=== PATIENT | male | born 1985 | race Caucasian/White ===

== ENCOUNTER 2018-05-02 20:24 | Emergency (ER) | payer BC ==
[2018-05-02] MEDS ORDERED: Sodium Chloride 0.9% 10 ML Syringe FLUSH PRN (20:35)
[2018-05-02] MEDS ORDERED: Aspirin 81 MG Tab.Chew PO ONE (20:44)
--- NOTE | 2018-05-02 20:49 | EDM.PDOC ---
ED HPI GENERAL MEDICAL PROBLEM - General Chief Complaint: Chest Pain Stated Complaint: TIGHTNESS ON CHEST,TINGILING LT ARM Time Seen by Provider: 05/02/18 20:35 Source of Information: Reports: Patient History Limitations: Reports: No Limitations - History of Present Illness INITIAL COMMENTS - FREE TEXT/NARRATIVE: Complains of substernal chest tightness, left arm tingling, intermittent palpitations, and "cold sweats" x 2 hours onset while seated at desk. Denies h/ o CAD. Has borderline high cholesterol. His only medication is [place] 3. There is a family history of early LA (Uncle had an LA in his 30's). Patient denies feeling anxious. Onset: Sudden Duration: Hour(s): (2) Location: Reports: Chest Quality: Reports: Other (tightness) Severity: Moderate Improves with: Reports: None Worsens with: Reports: None Context: Reports: Other (at rest) - Related Data Allergies Allergy/AdvReac Type Severity Reaction Status Date / Time No Known Allergies Allergy Verified 05/02/18 21:28 Home Meds: Home Meds [place]-3 Acid Ethyl Esters 1 gm PO DAILY 05/02/18 [History] Past Medical History Cardiovascular History: Reports: High Cholesterol. Denies: CAD Social & Family History - Tobacco Use Smoking Status *Q: Never Smoker - Alcohol Use Alcohol Use History: No - Recreational Drug Use Recreational Drug Use: No ED ROS GENERAL - Review of Systems Review Of Systems: ROS reveals no pertinent complaints other than HPI. ED EXAM, GENERAL - Physical Exam Exam: See Below Exam Limited By: No Limitations General Appearance: Alert, No Apparent Distress Ears: Normal External Exam Nose: Normal Inspection Throat/Mouth: No Airway Compromise Head: Atraumatic, Normocephalic Neck: Normal Inspection, Full Range of Motion Respiratory/Chest: No Respiratory Distress, Lungs Clear, Normal Breath Sounds, Chest Non-Tender Cardiovascular: Regular Rate, Rhythm, No Murmur GI/Abdominal: Normal Bowel Sounds, Soft, Non-Tender, No Distention Back Exam: Full Range of Motion Extremities: Normal Range of Motion Neurological: Alert, Oriented, Normal Cognition, No Motor/Sensory Deficits Psychiatric: Normal Affect, Normal Mood Skin Exam: Warm, Dry, Intact EKG INTERPRETATION EKG Date: 05/02/18 Time: 22:04 Rhythm: NSR Rate (Beats/Min): 81 [place]: Normal P-Wave: Present QRS: Normal ST-T: Other (ST elevation, early repolarization pattern) QT: Normal Comparison: NA - No Prior EKG Course - Vital Signs Last Recorded V/S: Last Vital Signs Temp 36.8 C 05/02/18 20:25 Pulse 91 05/02/18 20:25 Resp 18 05/02/18 20:25 BP 120/73 05/02/18 20:25 Pulse Ox 100 05/02/18 20:25 - Orders/Labs/Meds Orders: Active Orders 24 hr Category Date Time Status EKG Documentation Completion [RC] ASDIRECTED Care 05/02/18 20:35 Active Chest 1V Frontal [CR] Stat Exams 05/02/18 20:34 Taken Nitroglycerin [Nitrostat] Med 05/02/18 20:45 Active 0.4 mg SL Q5M PRN Sodium Chloride 0.9% [Normal Saline] 500 ml Med 05/02/18 21:37 Active IV .BOLUS Sodium Chloride 0.9% [Saline Flush] Med 05/02/18 20:35 Active 10 ml FLUSH ASDIRECTED PRN Saline Lock Insert [OM.PC] Routine Oth 05/02/18 20:35 Ordered EKG 12 Lead [EK] Stat Ther 05/02/18 20:34 Ordered Medication Orders Sodium Chloride (Normal Saline) 500 mls @ 999 mls/hr IV .BOLUS ONE Stop: 05/02/18 22:07 Nitroglycerin (Nitrostat) 0.4 mg SL Q5M PRN PRN Reason: Chest Pain Sodium Chloride (Saline Flush) 10 ml FLUSH ASDIRECTED PRN PRN Reason: Keep Vein Open Labs: Laboratory Tests 05/02/18 05/02/18 05/02/18 Range/Units 20:40 20:40 20:40 WBC 7.9 (4.5-12.0) X10-3/uL RBC 5.14 (4.30-5.75) x10(6)uL Hgb 15.2 (13.5-17.8) g/dL Hct 45.4 (30.0-51.3) % MCV 88.2 (80-96) fL MCH 29.5 (27.7-33.6) pg MCHC 33.5 (32.2-35.4) g/dL RDW 12.5 (11.5-15.5) % Plt Count 321 (125-369) X10(3)uL MPV 8.3 (7.4-10.4) fL Neut % (Auto) 62.2 (46-82) % Lymph % (Auto) 22.6 (13-37) % Hardy % (Auto) 10.4 (4-12) % Eos % (Auto) 3 (1.0-5.0) % Baso % (Auto) 2 (0-2) % Neut # (Auto) 4.9 (1.6-8.3) # Lymph # (Auto) 1.8 (0.6-5.0) # Hardy # (Auto) 0.8 (0.0-1.3) # Eos # (Auto) 0.2 (0.0-0.8) # Baso # (Auto) 0.2 (0.0-0.2) # PT 10.0 (8.7-11.1) INR 1.03 (0.89-1.13) APTT 25.5 (24.4-33.2) SECONDS D-Dimer, Quantitative (0.0-0.59) mg/LFEU Sodium 141 (135-145) mmol/L Potassium 3.9 (3.5-5.3) mmol/L Chloride 103 (100-110) mmol/L Carbon Dioxide 31 (21-32) mmol/L BUN 15 (7-18) mg/dL Creatinine 1.0 (0.70-1.30) mg/dL Est Cr Clr Drug Dosing TNP Estimated GFR (MDRD) > 60 (>60) BUN/Creatinine Ratio 15.0 (9-20) Glucose 83 (80-116) mg/dL Calcium 9.0 (8.6-10.2) mg/dL Total Bilirubin 0.3 (0.1-1.3) mg/dL AST 17 (5-25) IU/L ALT 38 H (12-36) U/L Alkaline Phosphatase 111 (56-112) IU/L Troponin I (<0.017-0.056) ng/mL Total Protein 7.2 (6.0-8.0) g/dL Albumin 3.8 (3.5-5.2) g/dL Globulin 3.4 g/dL Albumin/Globulin Ratio 1.1 05/02/18 05/02/18 Range/Units 20:40 20:40 WBC (4.5-12.0) X10-3/uL RBC (4.30-5.75) x10(6)uL Hgb (13.5-17.8) g/dL Hct (30.0-51.3) % MCV (80-96) fL MCH (27.7-33.6) pg MCHC (32.2-35.4) g/dL RDW (11.5-15.5) % Plt Count (125-369) X10(3)uL MPV (7.4-10.4) fL Neut % (Auto) (46-82) % Lymph % (Auto) (13-37) % Hardy % (Auto) (4-12) % Eos % (Auto) (1.0-5.0) % Baso % (Auto) (0-2) % Neut # (Auto) (1.6-8.3) # Lymph # (Auto) (0.6-5.0) # Hardy # (Auto) (0.0-1.3) # Eos # (Auto) (0.0-0.8) # Baso # (Auto) (0.0-0.2) # PT (8.7-11.1) INR (0.89-1.13) APTT (24.4-33.2) SECONDS D-Dimer, Quantitative 0.67 H (0.0-0.59) mg/LFEU Sodium (135-145) mmol/L Potassium (3.5-5.3) mmol/L Chloride (100-110) mmol/L Carbon Dioxide (21-32) mmol/L BUN (7-18) mg/dL Creatinine (0.70-1.30) mg/dL Est Cr Clr Drug Dosing Estimated GFR (MDRD) (>60) BUN/Creatinine Ratio (9-20) Glucose (80-116) mg/dL Calcium (8.6-10.2) mg/dL Total Bilirubin (0.1-1.3) mg/dL AST (5-25) IU/L ALT (12-36) U/L Alkaline Phosphatase (56-112) IU/L Troponin I < 0.017 L (<0.017-0.056) ng/mL Total Protein (6.0-8.0) g/dL Albumin (3.5-5.2) g/dL Globulin g/dL Albumin/Globulin Ratio Meds: Medications Generic Name Dose Route Start Last Admin Trade Name Freq PRN Reason Stop Dose Admin Sodium Chloride 500 mls @ 999 mls/hr 05/02/18 21:37 Normal Saline IV 05/02/18 22:07 .BOLUS ONE Nitroglycerin 0.4 mg 05/02/18 20:45 Nitrostat SL Q5M PRN Chest Pain Sodium Chloride 10 ml 05/02/18 20:35 Saline Flush FLUSH ASDIRECTED PRN Keep Vein Open Discontinued Medications Generic Name Dose Route Start Last Admin Trade Name Freq PRN Reason Stop Dose Admin Aspirin 324 mg 05/02/18 20:44 Aspirin PO 05/02/18 20:45 ONETIME ONE - Radiology Interpretation Free Text/Narrative:: CXR: NAD (ED provider interpretation) - Re-Assessments/Exams Free Text/Narrative Re-Assessment/Exam: 05/02/18 19:55 Symptoms resolved after NTG SL x 2. 05/02/18 22:06 Dr. Murguia accepts patient for transfer to [facility] Departure - Departure Time of Disposition: 22:06 Disposition: DC/Tfer to Acute Hospital 02 Reason for Transfer *Q: Other Condition: Fair Clinical Impression: Unstable angina Referrals: Seema Powell, PHOTOGRAPHIC SPECIALIST [Primary Care Provider] - Forms: ED Department Discharge - My Orders Last 24 Hours: My Active Orders 05/02/18 20:34 Chest 1V Frontal [CR] Stat EKG 12 Lead [EK] Stat 05/02/18 20:35 EKG Documentation Completion [RC] ASDIRECTED Sodium Chloride 0.9% [Saline Flush] 10 ml FLUSH ASDIRECTED PRN Saline Lock Insert [OM.PC] Routine 05/02/18 20:45 Nitroglycerin [Nitrostat] 0.4 mg SL Q5M PRN 05/02/18 21:37 Sodium Chloride 0.9% [Normal Saline] 500 ml IV .BOLUS - Assessment/Plan Last 24 Hours: My Active Orders 05/02/18 20:34 Chest 1V Frontal [CR] Stat EKG 12 Lead [EK] Stat 05/02/18 20:35 EKG Documentation Completion [RC] ASDIRECTED Sodium Chloride 0.9% [Saline Flush] 10 ml FLUSH ASDIRECTED PRN Saline Lock Insert [OM.PC] Routine 05/02/18 20:45 Nitroglycerin [Nitrostat] 0.4 mg SL Q5M PRN 05/02/18 21:37 Sodium Chloride 0.9% [Normal Saline] 500 ml IV .BOLUS
[2018-05-02] MEDS: Nitroglycerin 0.4 MG Tab.SL SL PRN ×2 (20:54→21:39)
[2018-05-02] MEDS ORDERED: Sodium Chloride 0.9% 500 ML IV ONE (21:37)
== END 2018-05-02 22:25 ==
LOC: FB.ED 20:24
DX: I20.0 Unstable angina (principal)
CPT/HCPCS: 36415; 71045; 80053; 84484; 85025; 85379; 85610; 85730; 93005; 99285-25; A9270-GY

== ENCOUNTER 2023-04-03 19:05 | Emergency (ER) | payer BC ==
[2023-04-03] MEDS ORDERED: Ondansetron 4 MG Tab.DIS PO ONE (19:06)
[2023-04-03] MEDS ORDERED: Sodium Chloride 0.9% 10 ML Syringe FLUSH PRN (19:33)
[2023-04-03] MEDS: Ketorolac 30 MG/ML SDV IVPUSH ONE (19:41)
[2023-04-03] MEDS: Ondansetron 4 MG/2 ML SDV IVPUSH ONE (19:42)
[2023-04-03] MEDS: Sodium Chloride 0.9% 1,000 ML IV SCH (19:43)
[2023-04-03 19:53] LABS: BASOPHILS ABSOLUTE AUTO 0.1 x10-3/uL (0.0-0.3); BASOPHILS PERCENT AUTO 0.6 % (0.3-3.8); BLOOD UREA NITROGEN,BUN 12 mg/dL (7-18); CALCIUM 8.5 mg/dL (8.6-10.2); CARBON DIOXIDE,CO2 26 mmol/L (21-32); CHLORIDE,CL 100 mmol/L (100-110); EOSINOPHILS ABSOLUTE AUTO 0.3 x10-3/uL (0.0-0.6); ESTIMATED GFR 101 mL/min (>60); GLUCOSE RANDOM 99 mg/dL (80-116); HEMATOCRIT 44.4 % (38.3-50.1); HEMOGLOBIN 14.8 g/dL (12.9-17.7); LYMPHOCYTES ABSOLUTE AUTO 2.1 x10-3/uL (0.5-4.5); LYMPHOCYTES PERCENT AUTO 20.7 % (15.8-45.3); MEAN CORPUSCULAR HEMOGLOBIN 28.8 pg (27.0-33.3); MEAN CORPUSCULAR HGB CONC 33.3 g/dL (28.7-35.3); MEAN CORPUSCULAR VOLUME 86.6 fL (80.8-98.7); MONOCYTES ABSOLUTE AUTO 0.9 x10-3/uL (0.0-1.2); MONOCYTES PERCENT AUTO 8.7 % (5.5-15.2); NEUTROPHILS ABSOLUTE AUTO 6.6 x10-3/uL (1.7-6.9); PLATELET COUNT,PLT 314 x10(3)uL (117-477); POTASSIUM,K 3.9 mmol/L (3.5-5.3); RED BLOOD CELL COUNT 5.12 x10(6)uL (3.90-5.90); RED CELL DISTRIBUTION WIDTH 13.6 % (12.4-15.0); SODIUM,NA 138 mmol/L (135-145); WHITE BLOOD CELL COUNT,WBC 9.9 x10-3/uL (3.2-10.1)
[2023-04-03 20:39] LABS: INFLUENZA A NAA NEGATIVE (NEGATIVE); INFLUENZA B NAA NEGATIVE (NEGATIVE); RESPIRATORY SYNCYTIAL VIR NAA NEGATIVE (NEGATIVE)
[2023-04-03 20:41] LABS: CORONAVIRUS COVID-19 NAA NEGATIVE (NEGATIVE)
== END 2023-04-03 21:07 | disposition home or self-care (01) ==
LOC: FB.ED 19:05
DX: A08.4 Viral intestinal infection, unspecified (principal); E78.00 Pure hypercholesterolemia, unspecified
CPT/HCPCS: 0241U; 36415; 80048; 85025; 87651; 96361; 96374; 96375; 99284; J1885; J2405; J7030; Q0162